=== PATIENT | female | born 2000 | race Caucasian/White ===

== ENCOUNTER 2022-03-08 14:24 | Emergency (ER) | payer BC ==
[~2022-03-08] VITALS: Ht 152.4 cm; Wt 75.8 kg
== END 2022-03-08 16:18 | disposition home or self-care (01) ==
LOC: FSED 14:29
DX: O20.9 Hemorrhage in early pregnancy, unspecified (principal); R50.9 Fever, unspecified
CPT/HCPCS: 80307; 81003; 99282